=== PATIENT | female | born 1980 | race Caucasian/White ===

== ENCOUNTER 2016-10-11 16:10 | Emergency (ER) | payer OTHER ==
--- NOTE | 2016-10-11 18:09 | ED ORDER SUMMARY ---
..... Patient: PERFECTO VIZCARRA OrderSheet [facility] VisitID: [id number] [place] [address] 36y, F Registration Date/Time: 10/11/2016 ORDER SHEET Weight: 69.8 kg (stated) Allergies: Benadryl, Compazine, Eggs or Egg-derived Products GENERAL ORDERS: MEDICATION ORDERS: IV FLUIDS: IV NS : initial bolus 1000 mL (1000 mL/hr), then none - for X1 (NOW) (16:58 10/11/2016 Ryan Ferrera) (17:15 Shelley Manuel.N.) Toradol IV 30 mg (NOW) (16:58 10/11/2016 Ryan Ferrera) (17:16 Shelley Manuel.N.) Reglan IV 10 mg (NOW) (16:59 10/11/2016 Ryan Ferrera) (17:15 Shelley Manuel.N.) Decadron IV 10 mg (NOW) (16:59 10/11/2016 Ryan Ferrera) (17:20 Shelley R.N.) ORDER SHEET NOTES: [Electronically signed by Pasquale Adasm R.N. (20:17 10/11/2016)] [Electronically signed by Melvin Lundberg Dr. (14:48 10/17/2016)] [Electronically locked/signed by Pasquale Adams R.N. (20:17 10/11/2016)]
--- NOTE | 2016-10-11 18:09 | ED CLINICAL REPORT ---
Clinical Report - Physicians/Mid Levels [facility] [address] [place] [address] 10/11/2016 16:12 Patient: PERFECTO VIZCARRA Time Seen: 1650. Arrived- By private vehicle. Historian- patient. HISTORY OF PRESENT ILLNESS Chief Complaint: HEADACHE. It is gone now. This started today. It was abrupt in onset and has been constant but is not gone now. Patient was last known well (yesterday). Onset during rest. It is described as well localized. Located in the left parietal and left temporal region. No neck pain. Not located in the facial region. At its maximum, severity described as moderate. When seen in the E.D., severity described as moderate. Modifying factors: worsened by bright light and noise; relieved by rest. The patient has had photophobia and nausea. No preceding symptoms, blurred vision, numbness, weakness or vomiting. (patient also with cough, congestion, runny nose.). No recent travel. Similar symptoms previously: Several times. Recent medical care: Not recently seen/assessed. REVIEW OF SYSTEMS No fever, carbon monoxide exposure, head injury, chest pain or difficulty breathing. No skin rash. All systems otherwise negative, except as recorded above. PAST HISTORY See nurses notes. SOCIAL HISTORY No recent travel. Is a local resident. ADDITIONAL NOTES The nursing notes have been reviewed. PHYSICAL EXAM Vital Signs: 10/11/2016 16:37 BP: 103/57. HR: 64. RR: 16. O2 saturation: 100%. Temp: 99.4 F. Pain level now: 8/10. Blood pressure normal. Oxygen saturation normal. Appearance: Alert. No acute distress. Eyes: Pupils equal, round and reactive to light. Eyes normal inspection. (Funduscopic exam: No papilledema. Normal appearing retinal vasculature.). ENT: Ears normal. Nose normal. Pharynx normal. Neck: Normal inspection. Neck supple. CVS: Normal heart rate and rhythm. Heart sounds normal. Pulses normal. Respiratory: No respiratory distress. Abdomen: Soft and nontender. No organomegaly. Skin: Skin warm and dry. Normal skin color. No rash. Normal skin turgor. Extremities: Extremities exhibit normal ROM. No lower extremity edema. Neuro: Oriented X 3. Alert. Mood/affect normal. Speech normal. Cranial nerves normal (as tested). No cerebellar findings. No motor deficit. No sensory deficit. Reflexes normal. PROGRESS AND PROCEDURES Course of Care: The patient is a pleasant 36-year-old female with past medical history significant for headaches. Patient states that this feels like her normal migraines. Patient was last headache like this several months ago. Patient otherwise is in no acute distress and is nontoxic in appearance. I discussed with patient in regards to medications that typically help with improving her symptoms. Patient is agreeable to "migraine cocktail. "Patient was allergic to Benadryl. Benadryl Will not be provided. Decadron ordered for reduction of risk for rebound headache. Patient was reevaluated after the administration of medications. Patient reports significant relief of her symptoms. Patient states that she feels better comfortable and will be able to manage the rest of her headache at home. Do not feel the patient has a subarachnoid hemorrhage, meningitis, increased intracranial pressure, or other more sinister etiologies of headache. Patient continues to be nontoxic and in no acute distress. Discussed with patient workup, diagnosis, home care, follow-up, and return precautions. All questions answered. The patient expressed understanding of these instructions and was agreeable to that. Disposition: Discharged. Condition: good. CLINICAL IMPRESSION 10/11/2016 17:55 BP: 91/45. HR: 65. RR: 16. O2 saturation: 94%. Pain level now: 4/10. Acute headache (Left temporal). Blood pressure normal. Oxygen saturation normal. Acute viral pharyngitis. INSTRUCTIONS Warnings: GENERAL WARNINGS: Return or contact your physician immediately if your condition worsens or changes unexpectedly, if not improving as expected, or if other problems arise. SPECIFICALLY, return if you develop fever, vomiting, numbness, weakness, difficulty thinking, visual disturbances, fainting or extreme fatigue. Your Current Medications: CONTINUE TAKING THE FOLLOWING MEDICATIONS: Flexiril 10mg hs*. Imitrex*. Imitrex Subcutaneous. LaMICtal Oral : Tablet Chewable 25 mg, 1 tablet bid. Phenergan (Promethazine) Oral. Prescription Medications: Zofran ODT 4 mg: take 1 orally as needed for nausea and vomiting. Dispense ten (10). No refill. Substitution is permissible. Fioricet: take 1 orally every 6 hours as needed for pain or headache. Dispense twenty (20). No refills. Substitution is permissible. Follow-up: Return to the emergency department as needed. Follow up with your doctor in three days. Reason for referral: rrecheck today's concerns. Summary of care provided to patient via paper. Screening today revealed the patient's blood pressure to be in the normal range. The patient should follow up with a primary care provider for blood pressure management. Understanding of the discharge instructions verbalized by patient. (Electronically signed by Melvin Lundberg Dr. 10/17/2016 14:48)
--- NOTE | 2016-10-11 18:09 | ED NURSING NOTES ---
Clinical Report - Nurses [facility] [address] [place] [address] 10/11/2016 16:12 Patient: PERFECTO VIZCARRA TRIAGE Triage time 16:37. Acuity: LEVEL 3. Chief Complaint: VOMITING (Migraine headache onset this am, also URI sx.). 16:45 10/11/16. SEPSIS SCREEN: Sepsis Screen. Negative (no infection suspected/documented). ANDREAS COMA SCORE: Andreas Coma Scale: 15- eyes open spontaneously (4); best verbal response- oriented x 4 (5); best motor response- obeys commands (6). --16:45 Pasquale Adams R.N. 16:37 10/11/16. BP: 103/57. HR: 64. RR: 16. O2 saturation: 100% on room air. Temp: 99.4 F. Pain level now: 05/20. --16:45 Pasquale Adams R.N. Weight: 69.8 kg stated. Height/Length: 67 inches Per Patient. BMI: 24.1. --16:43 Pasquale Adams R.N. Medications Flexiril 10mg hs. LaMICtal Oral (Tablet Chewable 25 mg) 1 tablet, bid. --16:40 Pasquale Adams R.N. Imitrex. --16:41 Pasquale Adams R.N. Imitrex Subcutaneous. Phenergan (Promethazine) Oral. --16:41 Pasquale Adams R.N. The following entry was struck by Pasquale Adams R.N., 16:41 (10/11/16) Reason - other. <<STRICKEN ENTRY-- Phener. --16:41 Pasquale Adams R.N. --END STRIKE>>. Allergies Benadryl. Compazine. Eggs or Egg-derived Products. --16:40 Pasquale Adams R.N. History Arrived by private vehicle. Historian: patient. The patient has had nausea. Treatment [employer]: (Imitrex today 0630). --16:45 Pasquale Adams R.N. PROBLEMS: Skin Rash. Med rx. Foot Fracture. Fractured Phalanx (Finger). URI. Immunizations. Migraine Headache. --16:37 Pasquale Adams R.N. ADDITIONAL SURGERIES: Ankle lt . Appendectomy. Cholecystectomy. . Cyst removal from hand. Hip Surgery. Hysterectomy. --16:42 Pasquale Adams R.N. Interventions ID band on patient. To treatment room. --16:45 Pasquale Adams R.N. PHYSICAL ASSESSMENT 16:45. Ambulatory to room. Patient gowned. GENERAL / NEURO / PSYCH: Alert. Oriented X 4. Appears in pain. Speech within normal limits. HEENT: No facial asymmetry noted. Pupils equal, round and reactive to light. Runny nose. ( denies visual changes or dizziness). RESPIRATORY: Respirations not labored. Breath sounds within normal limits. ( occasional productive cough with phlegm). CVS: Capillary refill less than 2 seconds. GI / : Abdomen soft and nontender. SKIN: Skin is warm and dry. --16:55 Pasquale Adams R.N. NURSING PROGRESS NOTES 16:56 10/11/16. Head of bed elevated. Reassurance given. Lights dimmed. Two patient identifiers checked. Call light placed in reach. Bed placed in lowest position. Brakes of bed on. Patient ready for evaluation- chart flagged. --16:56 Pasquale Adams R.N. 17:10 10/11/2016 Site #1 started via IV in the right antecubital space with an 20g angiocath, with aseptic technique and good blood return; one attempt. Blood drawn: rainbow set. Labeled in the presence of the patient and held. Saline lock flushed with 10 mL saline. --17:15 Pasquale Adams R.N. 17:10 10/11/2016 Started bag #1 1000 mL IV Fluids IV NS (Saline); bolus of 1000 mL over 1 hour(s) via site #1. Allergies verified and confirmed 5 rights. IV patency established. IV site checked: no pain, redness, or swelling. IV flushed thoroughly pre- and post-medication administration. --17:15 Pasquale Adams R.N. 17:11 10/11/2016 Reglan (Metoclopramide HCl) IVP 10 mg given over 1 minute(s) via site #1. Allergies verified and confirmed 5 rights. IV patency established. IV site checked: no pain, redness, or swelling. IV flushed thoroughly pre- and post-medication administration. IVP given by RN. --17:15 Pasquale Adams R.N. 17:13 10/11/2016 Toradol IVP 30 mg given over 1 minute(s) via site #1. Allergies verified and confirmed 5 rights. IV patency established. IV site checked: no pain, redness, or swelling. IV flushed thoroughly pre- and post-medication administration. IVP given by RN. --17:16 Pasquale Adams R.N. 17:18 10/11/2016 Decadron IVP 10 mg given over 2 minute(s) via site #1. Allergies verified and confirmed 5 rights. IV patency established. IV site checked: no pain, redness, or swelling. IV flushed thoroughly pre- and post-medication administration. IVP given by RN. --17:20 Pasquale Adams R.N. 17:25. Reassessment after fluids administered and medication administered. She is resting quietly. GENERAL / NEURO / PSYCH: The patient reports headache (Improving a little, nausea inproving then she vomited x1.). --17:31 Pasquale Adams R.N. 17:55 10/11/16. BP: 91/45. HR: 65. RR: 16. O2 saturation: 94% on room air. Pain level now: 410. --17:59 Pasquale Adams R.N. 17:57 10/11/16. Head of bed elevated. Reassurance given. Lights dimmed. Reassessment after fluids administered and medication administered. She is resting quietly. Overall patient status is improved- she states feels better. GENERAL / NEURO / PSYCH: The patient reports headache (4/10). GI / : Denies nausea. Call light placed in reach. Bed placed in lowest position. Brakes of bed on. --17:59 Pasquale Adams R.N. 17:59 10/11/2016 Reglan IVP Response: pain is improving. Symptoms have improved the patient feels better. --17:59 Pasquale Adams R.N. 18:00 10/11/2016 Toradol IVP Response: no adverse reaction pain is improving. Symptoms have improved the patient feels better. --18:00 Pasquale Adams R.N. 18:00 10/11/2016 Decadron IVP Response: no adverse reaction pain is improving. Symptoms have improved the patient feels better. --18:00 Pasquale Adams R.N. 18:10 10/11/2016 IV Fluids IV NS Discontinued: bag #1 completed. Total amount infused: 1000 mL. IV patency established. IV site checked: no pain, redness, or swelling. IV flushed thoroughly. --18:51 Pasquale Adams R.N. DISPOSITION / DISCHARGE 18:50 10/11/2016 Site #1 removed upon discharge. Bandage applied. --18:50 Pasquale Adams R.N. 18:51 10/11/16. Departure time: 1850. Condition at departure: improved and stable. No learning barriers present. Discharge instructions provided and reviewed with the patient. Reviewed medication(s). Patient verbalized understanding. Written instructions provided in [place]. The patient was discharged by the physician. She was discharged home and accompanied by spouse. She left the Emergency Department ambulatory and via private vehicle. Spouse driving. --18:51 Pasquale Adams R.N. 18:49 10/11/16. BP: 99/56. HR: 62. RR: 16. O2 saturation: 97% on room air. Temp: 98.4 F (oral). Pain level now: 12/18. --18:51 Pasquale Adams R.N. Locked/Released at 10/11/2016 20:17 by Pasquale Adams R.N.
--- NOTE | 2016-10-11 18:09 | ED ORDER SUMMARY ---
..... Patient: PERFECTO VIZCARRA OrderSheet [facility] VisitID: [id number] [place] [address] 36y, F Registration Date/Time: 10/11/2016 ORDER SHEET Weight: 69.8 kg (stated) Allergies: Benadryl, Compazine, Eggs or Egg-derived Products GENERAL ORDERS: MEDICATION ORDERS: IV FLUIDS: IV NS : initial bolus 1000 mL (1000 mL/hr), then none - for X1 (NOW) (16:58 10/11/2016 Ryan Ferrera) (17:15 Shelley Manuel.N.) Toradol IV 30 mg (NOW) (16:58 10/11/2016 Ryan Ferrera) (17:16 Shelley Manuel.N.) Reglan IV 10 mg (NOW) (16:59 10/11/2016 Ryan Ferrera) (17:15 Shelley Manuel.N.) Decadron IV 10 mg (NOW) (16:59 10/11/2016 Ryan Ferrera) (17:20 Shelley R.N.) ORDER SHEET NOTES: [Electronically signed by Pasquale Adams R.N. (20:17 10/11/2016)] [Electronically signed by Melvin Lundberg Dr. (14:48 10/17/2016)] [Electronically locked/signed by Pasquale Adams R.N. (20:17 10/11/2016)]
--- NOTE | 2016-10-17 14:49 | ED MAR SUMMARY ---
..... Medication Administration Record [facility] [address] [place] [address] Patient: PERFECTO VIZCARRA Visit ID: [id number] 36y, F Weight: 69.8 kg Height/Length: 67 in BMI: 24.1 ALLERGIES: Benadryl, Compazine, Eggs or Egg-derived Products Start 17:10 10/11/2016 Pasquale Adams R.N., Stop 18:10/11/2016 Pasquale Adams R.N. Medication Administered: IV NS (SALINE), Dose: IV Fluids, Bolus: 1000 mL over 1 hour(s), Dispensed: 1000 mL bag, Site: #1 right AC. Medication Ordered: IV NS : initial bolus 1000 mL (1000 mL/hr), then none - for X1 (NOW). Given 17:11 10/11/2016 Pasquale Adams R.N. Medication Administered: REGLAN [IVP] (METOCLOPRAMIDE HCL), Dose: 10 mg IVP over 1 minute(s), Site: #1 right AC. Medication Ordered: Reglan IV 10 mg (NOW). Given 17:13 10/11/2016 Pasquale Adams R.N. Medication Administered: TORADOL [IVP], Dose: 30 mg IVP over 1 minute(s), Site: #1 right AC. Medication Ordered: Toradol IV 30 mg (NOW). Given 17:18 10/11/2016 Pasquale Adams R.N. Medication Administered: DECADRON [IVP], Dose: 10 mg IVP over 2 minute(s), Site: #1 right AC. Medication Ordered: Decadron IV 10 mg (NOW).
--- NOTE | 2016-10-17 14:49 | ED MAR SUMMARY ---
..... Medication Administration Record [facility] [address] [place] [address] Patient: PERFECTO VIZCARRA Visit ID: [id number] 36y, F Weight: 69.8 kg Height/Length: 67 in BMI: 24.1 ALLERGIES: Benadryl, Compazine, Eggs or Egg-derived Products Start 17:10 10/11/2016 Pasquale Adams R.N., Stop 18:10/11/2016 Pasquale Adams R.N. Medication Administered: IV NS (SALINE), Dose: IV Fluids, Bolus: 1000 mL over 1 hour(s), Dispensed: 1000 mL bag, Site: #1 right AC. Medication Ordered: IV NS : initial bolus 1000 mL (1000 mL/hr), then none - for X1 (NOW). Given 17:11 10/11/2016 Pasquale Adams R.N. Medication Administered: REGLAN [IVP] (METOCLOPRAMIDE HCL), Dose: 10 mg IVP over 1 minute(s), Site: #1 right AC. Medication Ordered: Reglan IV 10 mg (NOW). Given 17:13 10/11/2016 Pasquale Adams R.N. Medication Administered: TORADOL [IVP], Dose: 30 mg IVP over 1 minute(s), Site: #1 right AC. Medication Ordered: Toradol IV 30 mg (NOW). Given 17:18 10/11/2016 Pasquale Adams R.N. Medication Administered: DECADRON [IVP], Dose: 10 mg IVP over 2 minute(s), Site: #1 right AC. Medication Ordered: Decadron IV 10 mg (NOW).
--- NOTE | 2016-10-17 14:49 | ED DISCHARGE INSTRUCTIONS ---
Patient: PERFECTO VIZCARRA General Instructions [facility] VisitID: [id number] [place] [address] 36y, F Registration Date/Time: 10/11/2016 10/11/2016 17:55 BP: 91/45. HR: 65. RR: 16. O2 saturation: 94%. Pain level now: 4/10. Acute headache (Left temporal). Blood pressure normal. Oxygen saturation normal. Acute viral pharyngitis. INSTRUCTIONS Warnings: GENERAL WARNINGS: Return or contact your physician immediately if your condition worsens or changes unexpectedly, if not improving as expected, or if other problems arise. SPECIFICALLY, return if you develop fever, vomiting, numbness, weakness, difficulty thinking, visual disturbances, fainting or extreme fatigue. Your Current Medications: CONTINUE TAKING THE FOLLOWING MEDICATIONS: Flexiril 10mg hs*. Imitrex*. Imitrex Subcutaneous. LaMICtal Oral : Tablet Chewable 25 mg, 1 tablet bid. Phenergan (Promethazine) Oral. Prescription Medications: Zofran ODT 4 mg: take 1 orally as needed for nausea and vomiting. Dispense ten (10). No refill. Substitution is permissible. Fioricet: take 1 orally every 6 hours as needed for pain or headache. Dispense twenty (20). No refills. Substitution is permissible. Follow-up: Return to the emergency department as needed. Follow up with your doctor in three days. Reason for referral: rrecheck today's concerns. Summary of care provided to patient via paper. Screening today revealed the patient's blood pressure to be in the normal range. The patient should follow up with a primary care provider for blood pressure management. Understanding of the discharge instructions verbalized by patient. ADDITIONAL INFORMATION Viral Respiratory Illness [Adult] You have an Upper Respiratory Illness (URI) caused by a virus. This illness is contagious during the first few days. It is spread through the air by coughing and sneezing or by direct contact (touching the sick person and then touching your own eyes, nose or mouth). Most viral illnesses go away within 7-10 days with rest and simple home remedies. Sometimes, the illness may last for several weeks. Antibiotics will not kill a virus and are generally not prescribed for this condition. Home Care: 1) If symptoms are severe, rest at home for the first 2-3 days. When you resume activity, don't let yourself get too tired. 2) Avoid being exposed to cigarette smoke (yours or others). 3) Tylenol (acetaminophen) or ibuprofen (Advil, Motrin) will help fever, muscle aching and headache. (Persons under 18 with fever should not take aspirin since this may cause liver damage.) 4) Your appetite may be poor, so a light diet is fine. Avoid dehydration by drinking 6-8 glasses of fluids per day (water, soft drinks, juices, tea, soup). Extra fluids will help loosen secretions in the nose and lungs. 5) Quap-cya-zptjxqg cold medicines will not shorten the length of time youre sick, but they may be helpful for the following symptoms: cough (Robitussin DM); sore throat (Chloraseptic lozenges or spray); nasal and sinus congestion (Actifed, Sudafed, Chlortrimeton). Follow Up with your doctor or as advised if you dont improve over the next week. Get Prompt Medical Attention if any of the following occur: -- Cough with lots of colored sputum (mucus) or blood in your sputum -- Chest pain, shortness of breath, wheezing or have trouble breathing -- Severe headache; face, neck or ear pain -- Fever over 100.4 F (38.0 C) for more than three days -- You cant swallow due to throat pain Headache [Unspecified] The cause of your headache today is not clear, but it does not appear to be the sign of any serious illness. Under stress, some people tense the muscles of their shoulder, neck and scalp without knowing it. If this condition lasts long enough, a TENSION HEADACHE can occur. A MIGRAINE HEADACHE is caused by changes in blood flow to the brain. A migraine attack may be triggered by emotional stress, hormone changes during the menstrual cycle, oral contraceptives, alcohol use, certain foods containing tyramine, eye strain, weather changes, missing meals, lack of sleep or oversleeping. Other causes of headache include a viral illness with high fever, head injury with concussion, sinus, ear or throat infection, dental pain and TMJ (jaw joint) pain. More serious but less common causes of headache include stroke, brain hemorrhage, brain tumor, meningitis and encephalitis. Home Care: If you were given pain medicine for this headache, do not drive yourself home. Arrange for a ride, instead. When you get home, try to sleep. You should feel much better when you wake up. Apply heat to the back of your neck to relieve neck muscle spasm. Migraine headaches may respond best to an ice pack on the forehead or at the base of the skull. If you are having nausea or vomiting, follow a light diet until your headache is relieved. If you have a migraine type headache, use sunglasses when in the daylight or around bright indoor lighting until symptoms improve. Bright glaring light can worsen this kind of headache. Follow Up with your doctor if the headache is not better within the next 24 hours. If you have frequent headaches you should discuss a treatment plan with your primary care doctor. By being aware of the earliest signs of headache, and starting treatment right away, you may be able to stop the pain yourself. Get Prompt Medical Attention if any of the following occur: Worsening of your head pain or no improvement within 24 hours Repeated vomiting (unable to keep liquids down) Fever of 100.4F (38C) or higher, or as directed by your healthcare provider Stiff neck Extreme drowsiness, confusion or fainting Dizziness, vertigo (dizziness with spinning sensation) Weakness of an arm or leg or one side of the face Difficulty with speech or vision Ondansetron Oral disintegrating tablet What is this medicine? ONDANSETRON (on NEVA se adeola) is used to treat nausea and vomiting caused by chemotherapy. It is also used to prevent or treat nausea and vomiting after surgery. How should I use this medicine? These tablets are made to dissolve in the mouth. Do not try to push the tablet through the foil backing. With dry hands, peel away the foil backing and gently remove the tablet. Place the tablet in the mouth and allow it to dissolve, then swallow. While you may take these tablets with water, it is not necessary to do so. Talk to your yield loss inspector regarding the use of this medicine in children. Special care may be needed. What side effects may I notice from receiving this medicine? Side effects that you should report to your doctor or health day care center director as soon as possible: allergic reactions like skin rash, itching or hives, swelling of the face, lips, or tongue breathing problems dizziness fast or irregular heartbeat feeling faint or lightheaded, falls fever and chills swelling of the hands and feet tightness in the chest Side effects that usually do not require medical attention (report to your doctor or health day care center director if they continue or are bothersome): constipation or diarrhea headache What may interact with this medicine? Do not take this medicine with any of the following medications: -apomorphine -cisapride -dofetilide -dronedarone -pimozide -thioridazine -ziprasidone This medicine may also interact with the following medications: -carbamazepine -phenytoin -rifampicin -tramadol -other medicines that prolong the QT interval (cause an abnormal heart rhythm) What if I miss a dose? If you miss a dose, take it as soon as you can. If it is almost time for your next dose, take only that dose. Do not take double or extra doses. Where should I keep my medicine? Keep out of the reach of children. Store between 2 and 30 degrees C (36 and 86 degrees F). Throw away any unused medicine after the expiration date. What should I tell my health care provider before I take this medicine? They need to know if you have any of these conditions: heart disease history of irregular heartbeat liver disease low levels of magnesium or potassium in the blood an unusual or allergic reaction to ondansetron, granisetron, other medicines, foods, dyes, or preservatives or trying to get breast-feeding What should I watch for while using this medicine? Check with your doctor or health day care center director as soon as you can if you have any sign of an allergic reaction. Butalbital, Acetaminophen, Caffeine Oral tablet What is this medicine? ACETAMINOPHEN; BUTALBITAL; CAFFEINE (a set a KENYON dae fen; byoo BRANDON bi brandon; KAF een) is a pain reliever. It is used to treat tension headaches. How should I use this medicine? Take this medicine by mouth with a full glass of water. Follow the directions on the prescription label. If the medicine upsets your stomach, take the medicine with food or milk. Do not take more than you are told to take. Talk to your yield loss inspector regarding the use of this medicine in children. Special care may be needed. What side effects may I notice from receiving this medicine? Side effects that you should report to your doctor or health day care center director as soon as possible: allergic reactions like skin rash, itching or hives, swelling of the face, lips, or tongue breathing problems confusion feeling faint or lightheaded, falls redness, blistering, peeling or loosening of the skin, including inside the mouth seizure stomach pain yellowing of the eyes or skin Side effects that usually do not require medical attention (report to your doctor or health day care center director if they continue or are bothersome): constipation nausea, vomiting What may interact with this medicine? alcohol or medicines that contain alcohol antidepressants, especially MAOIs like isocarboxazid, phenelzine, tranylcypromine, and selegiline antihistamines benzodiazepines carbamazepine isoniazid medicines for pain like pentazocine, buprenorphine, butorphanol, nalbuphine, tramadol, and propoxyphene muscle relaxants naltrexone phenobarbital, phenytoin, and fosphenytoin phenothiazines like perphenazine, thioridazine, chlorpromazine, mesoridazine, fluphenazine, prochlorperazine, promazine, and trifluoperazine voriconazole What if I miss a dose? If you miss a dose, take it as soon as you can. If it is almost time for your next dose, take only that dose. Do not take double or extra doses. Where should I keep my medicine? Keep out of the reach of children. This medicine can be abused. Keep your medicine in a safe place to protect it from theft. Do not share this medicine with anyone. Selling or giving away this medicine is dangerous and against the law. Store at room temperature between 15 and 30 degrees C (59 and 86 degrees F). Keep container tightly closed. Protect from light. Throw away any unused medicine after the expiration date. What should I tell my health care provider before I take this medicine? They need to know if you have any of these conditions: drink more than 3 alcohol-containing drinks per day drug abuse or addiction heart or circulation problems kidney disease or problems going to the bathroom liver disease lung disease, asthma, or breathing problems porphyria an unusual or allergic reaction to acetaminophen, butalbital or other barbiturates, caffeine, other medicines, foods, dyes, or preservatives or trying to get breast-feeding What should I watch for while using this medicine? Tell your doctor or health day care center director if your pain does not go away, if it gets worse, or if you have new or a different type of pain. You may develop tolerance to the medicine. Tolerance means that you will need a higher dose of the medicine for pain relief. Tolerance is normal and is expected if you take the medicine for a long time. Do not suddenly stop taking your medicine because you may develop a severe reaction. Your body becomes used to the medicine. This does NOT mean you are addicted. Addiction is a behavior related to getting and using a drug for a non-medical reason. If you have pain, you have a medical reason to take pain medicine. Your doctor will tell you how much medicine to take. If your doctor wants you to stop the medicine, the dose will be slowly lowered over time to avoid any side effects. You may get drowsy or dizzy when you first start taking the medicine or change doses. Do not drive, use machinery, or do anything that may be dangerous until you know how the medicine affects you. Stand or sit up slowly. Do not take other medicines that contain acetaminophen with this medicine. Always read labels carefully. If you have questions, ask your doctor or pharmacist. If you take too much acetaminophen get medical help right away. Too much acetaminophen can be very dangerous and cause liver damage. Even if you do not have symptoms, it is important to get help right away. You have been given the following additional information: Uri, Viral, No Abx (Adult) Headache, Unspecified Ondansetron Oral disintegrating tablet Butalbital, Acetaminophen, Caffeine Oral tablet (Electronically signed by Melvin Lundberg Dr. 10/17/2016 14:48)
--- NOTE | 2016-10-17 14:49 | ED MED RECONCILIATION SUMMARY ---
Patient: PERFECTO VIZCARRA Medication Reconciliation Report [facility] VisitID: [id number] [place] [address] 36y, F Registration Date/Time: 10/11/2016 Weight: 69.8 kg Height/Length: 67 in. BMI: 24.1 ALLERGIES: Benadryl, Compazine, Eggs or Egg-derived Products The patient's Home Medications are listed below: CONTINUE TAKING THE FOLLOWING MEDICATIONS: Flexiril 10mg hs Imitrex Imitrex Subcutaneous LaMICtal Oral (25 mg) 1 tablet, bid Phenergan (Promethazine) Oral The source(s) of the original Home Medication information: Not obtained. The following Medications were given to the patient in the Emergency Department: IV NS IV Fluids bolus 1000 mL over 1 hour(s), administered: 10/11/2016 5:10:00 PM Reglan [IVP] IVP 10 mg, administered: 10/11/2016 5:11:00 PM Toradol [IVP] IVP 30 mg, administered: 10/11/2016 5:13:00 PM Decadron [IVP] IVP 10 mg, administered: 10/11/2016 5:18:00 PM The following Medications were prescribed to the patient: Zofran ODT 4 mg: take 1 orally as needed for nausea and vomiting. Dispense ten (10). No refill. Substitution is permissible. -- Melvin Lundberg Dr. Fioricet: take 1 orally every 6 hours as needed for pain or headache. Dispense twenty (20). No refills. Substitution is permissible. -- Melvin Lundberg Dr.
--- NOTE | 2016-10-17 14:49 | ED MED RECONCILIATION SUMMARY ---
Patient: PERFECTO VIZCARRA Medication Reconciliation Report [facility] VisitID: [id number] [place] [address] 36y, F Registration Date/Time: 10/11/2016 Weight: 69.8 kg Height/Length: 67 in. BMI: 24.1 ALLERGIES: Benadryl, Compazine, Eggs or Egg-derived Products The patient's Home Medications are listed below: CONTINUE TAKING THE FOLLOWING MEDICATIONS: Flexiril 10mg hs Imitrex Imitrex Subcutaneous LaMICtal Oral (25 mg) 1 tablet, bid Phenergan (Promethazine) Oral The source(s) of the original Home Medication information: Not obtained. The following Medications were given to the patient in the Emergency Department: IV NS IV Fluids bolus 1000 mL over 1 hour(s), administered: 10/11/2016 5:10:00 PM Reglan [IVP] IVP 10 mg, administered: 10/11/2016 5:11:00 PM Toradol [IVP] IVP 30 mg, administered: 10/11/2016 5:13:00 PM Decadron [IVP] IVP 10 mg, administered: 10/11/2016 5:18:00 PM The following Medications were prescribed to the patient: Zofran ODT 4 mg: take 1 orally as needed for nausea and vomiting. Dispense ten (10). No refill. Substitution is permissible. -- Melvin Lundberg Dr. Fioricet: take 1 orally every 6 hours as needed for pain or headache. Dispense twenty (20). No refills. Substitution is permissible. -- Melvin Lundberg Dr.
== END 2016-10-11 18:50 | disposition home or self-care (01) ==
LOC: ED SRH 16:10
DX: R51 Headache (principal); J02.9 Acute pharyngitis, unspecified; Z88.8 Allergy status to other drugs, medicaments and biological substances; Z79.899 Other long term (current) drug therapy